=== PATIENT | female | born 2000 | race Asian ===

== ENCOUNTER 2023-05-14 22:30 | Emergency (ER) | payer OTHER ==
[~2023-05-14] VITALS: Ht 172.7 cm; Wt 77.0 kg
[2023-05-14 23:36] VITALS: O2SAT 100
[2023-05-15] MEDS ORDERED: ACET-2708 MT (00:30)
[2023-05-15 00:39] VITALS: BP 121/79; PULSE 60; RESP 18; TEMP 98.2
[2023-05-15] MEDS ORDERED: ACETAMINOPHEN 325MG TABLET PO ONE (00:45)
== END 2023-05-15 00:42 | disposition home or self-care (01) ==
LOC: ER 22:30
DX: S09.90XA Unspecified injury of head, initial encounter (principal); V89.2XXA Person injured in unspecified motor-vehicle accident, traffic, initial encounter; Y93.89 Activity, other specified; Y92.89 Other specified places as the place of occurrence of the external cause; Y99.8 Other external cause status
CPT/HCPCS: 81025; 99282